=== PATIENT | male | born 1975 | race American Indian/Alaskan Native ===

== ENCOUNTER 2018-04-19 13:11 | Observation (INO) | payer MEDICAID ==
[2018-04-19 14:27] VITALS: BMI 30.4
--- NOTE | 2018-04-19 14:39 | CT ---
Date of service: 04/19/2018 PROCEDURE: CT HEAD WITHOUT CONTRAST. HISTORY: Code Stroke COMPARISON: None available. TECHNIQUE: Axial computed tomography images were obtained through the head/brain without intravenous contrast. Radiation dose: Total exam DLP = 971 mGy-cm. This CT exam was performed using one or more of the following dose reduction techniques: Automated exposure control, adjustment of the mA and/or kV according to patient size, and/or use of iterative reconstruction technique. FINDINGS: HEMORRHAGE: No intracranial hemorrhage. BRAIN: No mass effect or edema. No atrophy or chronic microvascular ischemic changes. VENTRICLES: Unremarkable. No hydrocephalus. CALVARIUM: Unremarkable. PARANASAL SINUSES: Unremarkable as visualized. No significant inflammatory changes. MASTOID AIR CELLS: Unremarkable as visualized. No inflammatory changes. OTHER FINDINGS: None. IMPRESSION: No acute findings
[2018-04-19 14:41] LABS: BASO # 0.03 K/mm3 (0.0-2.0); BASO % 0.4 % (0.0-3.0); EOS # 0.2 (0.0-0.7); EOS % 1.8 % (1.5-5.0); GRAN # 5.66 (1.4-6.5); GRAN % 68.8 % (50.0-68.0); HEMOGLOBIN 14.5 g/dL (14.0-18.0); LYMPH # 1.6 (1.2-3.4); LYMPH % 19.8 % (22.0-35.0); MEAN CELL VOLUME 88.6 fl (80.0-105.0); MEAN CORPUSCULAR HEMOGLOBIN 31.3 pg (25.0-35.0); MEAN CORPUSCULAR HGB CONC 35.3 g/dl (31.0-37.0); MEAN PLATELET VOLUME 9.3 fl (7.0-11.0); MONO # 0.8 (0.1-0.6); MONO % 9.2 % (1.0-6.0); RBC 4.64 10^6/uL (3.5-6.1); RED CELL DISTRIBUTION WIDTH 12.3 % (11.5-14.5); WHITE BLOOD COUNT 8.2 10^3/ul (4.5-11.0)
[2018-04-19 14:50] LABS: INR 1.19; PARTIAL THROMBOPLASTIN TIME 30.3 Seconds (25.1-36.5); PROTHROMBIN TIME 13.6 SECONDS (9.4-12.5)
--- NOTE | 2018-04-19 14:51 | RAD ---
Date of service: 04/19/2018 PROCEDURE: CHEST RADIOGRAPH, 1 VIEW HISTORY: Code Stroke COMPARISON: None available. FINDINGS: LUNGS: Clear. PLEURA: No pneumothorax or pleural fluid seen. CARDIOVASCULAR: Normal. OSSEOUS STRUCTURES: No significant abnormalities. VISUALIZED UPPER ABDOMEN: Normal. OTHER FINDINGS: None. IMPRESSION: No active disease.
[2018-04-19 14:53] LABS: ALB/GLOB RATIO 1.1 (1.1-1.8); ALBUMIN 4.1 g/dL (3.0-4.8); ALT/SGPT 46 U/L (7-56); AST/SGOT 38 U/L (17-59); BLOOD UREA NITROGEN 12 mg/dL (7-21); CALCIUM 9.4 mg/dL (8.4-10.5); GFR AFRICAN-AMERICAN > 60; GFR NON-AFRICAN AMERICAN > 60; HDL CHOLESTEROL 41 mg/dL (29-60)
[2018-04-19] MEDS: Sodium Chloride 0.9% 1,000 ML IV SCH (14:54)
[2018-04-19 15:04] LABS: LDL CHOLESTEROL 74 mg/dL (0-129)
[2018-04-19 15:07] LABS: TROPONIN I < 0.01 ng/mL
--- NOTE | 2018-04-19 16:30 | ED PDOC ---
Arrival/HPI - General Chief Complaint: Weakness/Neurological Deficit Time Seen by Provider: 04/19/18 14:18 Historian: Patient - History of Present Illness Narrative History of Present Illness (Text): 04/19/18 16:32 43-year-old male with no past medical history presents today with right sided facial weakness. Patient states that he woke up and noticed around 850 today with right sided facial tingling and around 9am noticed a right sided facial droop. pt states he has been having headaches x 3 days. no fever/chills. no neck pain. no dizziness. no chest pain or shortness of breath. no abdominal pain. no n/v/d/c. no other complaints. Past Medical History - Provider Review Nursing Documentation Reviewed: Yes - Travel History Have you recently traveled outside [place] w/in the past 3 mons?: No - Cardiac Hx Cardiac Disorders: No - Pulmonary Hx Respiratory Disorders: No - Neurological Hx Neurological Disorder: No - HEENT Hx HEENT Disorder: No - Endocrine/Metabolic Hx Endocrine Disorders: No - Psychiatric Hx Substance Use: No - Surgical History Other/Comment: Benign tumor of the liver - Anesthesia Hx Anesthesia: Yes Family/Social History - Physician Review Nursing Documentation Reviewed: Yes Family/Social History: Unknown Family HX Smoking Status: Light Smoker < 10 Cigarettes Daily Hx Alcohol Use: No Hx Substance Use: No Allergies/Home Meds Allergies/Adverse Reactions: Allergies Unobtainable Allergy (Verified 04/19/18 14:25) Home Medications: Home Meds Medication Instructions Recorded Confirmed No Known Home Med 04/19/18 04/19/18 Review of Systems - Review of Systems Constitutional: absent: Fatigue, Fevers Eyes: absent: Vision Changes ENT: absent: Sore Throat, Sinus Congestion Respiratory: absent: SOB, Cough Cardiovascular: absent: Chest Pain, Palpitations Gastrointestinal: absent: Abdominal Pain, Nausea, Vomiting Genitourinary Male: absent: Dysuria Musculoskeletal: absent: Arthralgias Skin: absent: Rash, Pruritis Neurological: Headache, Facial Droop. absent: Dizziness Psychiatric: absent: Anxiety, Depression, Suicidal Ideation Physical Exam Vital Signs Reviewed: Yes Vital Signs Temp Pulse Resp BP Pulse Ox 04/19/18 14:26 98.7 F 63 18 134/89 97 04/19/18 14:10 98.7 F 63 18 134/89 97 04/19/18 14:09 98.7 F 71 18 131/87 97 Temperature: Afebrile Blood Pressure: Normal Pulse: Regular Respiratory Rate: Normal Appearance: Positive for: Well-Appearing, Non-Toxic, Comfortable Pain Distress: None Mental Status: Positive for: Alert and Oriented X 3 Finger Stick Blood Glucose: 112 - Systems Exam Head: Present: Atraumatic, Other (right sided facial droop, unable to wrinkle forehead, ) Pupils: Present: PERRL Extroacular Muscles: Present: EOMI Conjunctiva: Present: Normal, Other (inability to close eye. ) Ears: Present: Normal, Other (no herpetic lesions) Mouth: Present: Moist Mucous Membranes Pharnyx: Present: Normal Nose (External): Present: Atraumatic Nose (Internal): Present: Normal Inspection Neck: Present: Normal Range of Motion. No: MIDLINE TENDERNESS, Paraspinal Tenderness Respiratory/Chest: Present: Clear to Auscultation, Good Air Exchange. No: Respiratory Distress, Accessory Muscle Use Cardiovascular: Present: Regular Rate and Rhythm, Normal S1, S2. No: Murmurs Abdomen: No: Tenderness, Rebound, Guarding Back: Present: Normal Inspection Upper Extremity: Present: Normal ROM Lower Extremity: Present: Normal ROM Neurological: Present: GCS=15, Speech Normal, Motor Func Grossly Intact, Normal Sensory Function, Gait Normal. No: CN II-XII Intact (facial nerve paralysis) Skin: Present: Warm, Dry, Normal Color Psychiatric: Present: Alert, Oriented x 3 Medical Decision Making ED Course and Treatment: 04/19/18 17:49 43yr old male with facial drop since 850am. code stroke was called by nursing staff. pt evaluated at beside noted to have right sided facial paralysis with flattening of forehead. consider bells palsy vs stroke. head CT; FINDINGS: HEMORRHAGE: No intracranial hemorrhage. BRAIN: No mass effect or edema. No atrophy or chronic microvascular ischemic changes. VENTRICLES: Unremarkable. No hydrocephalus. CALVARIUM: Unremarkable. PARANASAL SINUSES: Unremarkable as visualized. No significant inflammatory changes. MASTOID AIR CELLS: Unremarkable as visualized. No inflammatory changes. OTHER FINDINGS: None. IMPRESSION: No acute findings cbc; wnl cmp; wnl trop; wnl ekg; nsr at 61b/m; no st elevations, normal axis, normal intervals. cxr; wnl tylenol ordered for headache; pt refused rectal tylenol. pt failed swallow screen based on right sided facial weakness; asa ordered rectally; Pt refused. case was discussed with dr. PRIDE; advised prednisone and acyclovir po. as patient failed swallow screen dr. pride was notified and advised solu medrol 125mg IV and acyclovir 1000mg IV. advised observational status admission for observation. case discussed with dr. brumfield; accepts observation status admission for facial weakness, bells palsy vs stroke. impression; facial paralysis admit observational status to tele - Lab Interpretations Lab Results: 04/19/18 14:24 04/19/18 14:24 Lab Results 04/19/18 14:29: Blood Type O POSITIVE, Antibody Screen Negative, BBK History Checked No verified bt 04/19/18 14:24: Sodium 140, Potassium 3.8, Chloride 100, Carbon Dioxide 30, Anion Gap 14, BUN 12, Creatinine 1.0, Est GFR ( Amer) > 60, Est GFR (Non- Af Amer) > 60, Random Glucose 99, Calcium 9.4, Total Bilirubin 0.7, AST 38, ALT 46, Alkaline Phosphatase 99, Troponin I < 0.01, Total Protein 8.0, Albumin 4.1, Globulin 3.9, Albumin/Globulin Ratio 1.1, Triglycerides 69, Cholesterol 152, LDL Cholesterol Direct 74, HDL Cholesterol 41 04/19/18 14:24: PT 13.6 H, INR 1.19, APTT 30.3 04/19/18 14:24: WBC 8.2, RBC 4.64, Hgb 14.5, Hct 41.1 L, MCV 88.6, MCH 31.3, MCHC 35.3, RDW 12.3, Plt Count 190, MPV 9.3, Gran % 68.8 H, Lymph % (Auto) 19.8 L, [place] % (Auto) 9.2 H, Eos % (Auto) 1.8, Baso % (Auto) 0.4, Gran # 5.66, Lymph # (Auto) 1.6, [place] # (Auto) 0.8 H, Eos # (Auto) 0.2, Baso # (Auto) 0.03 04/19/18 14:18: POC Glucose (mg/dL) 112 H - RAD Interpretation Radiology Orders: 04/19/18 14:26 HEAD W/O (CODE STROKE) [CT] Stat CHEST ONE VIEW [RAD] Stat - Medication Orders Current Medication Orders: Sodium Chloride (Sodium Chloride 0.9%) 1,000 mls @ 100 mls/hr IV .Q10H GAVIN Last Admin: 04/19/18 14:54 Dose: 100 mls/hr eMAR Start Stop Document 04/19/18 14:54 LA (Rec: 04/19/18 14:55 LA [id number]) Intravenous Solution Start Date 04/19/18 Start Time 14:55 Acyclovir 500 mg/ Sodium (Chloride) 100 mls @ 100 mls/hr IV Q8 GAVIN PRN Reason: Protocol Acyclovir 1,000 mg/ Sodium (Chloride) 250 mls @ 100 mls/hr IV STAT STA PRN Reason: Protocol Stop: 04/19/18 20:05 Methylprednisolone (Solu-Medrol) 40 mg IVP Q12 GAVIN Pantoprazole Sodium (Protonix Inj) 40 mg IVP DAILY GAVIN Discontinued Medications Aspirin (Aspirin Supp) 300 mg RC STAT STA Stop: 04/19/18 17:43 Acyclovir 1,000 mg/ Sodium (Chloride) 100 mls @ 100 mls/hr IV STAT STA PRN Reason: Protocol Stop: 04/19/18 18:35 Methylprednisolone (Solu-Medrol) 125 mg IVP STAT STA Stop: 04/19/18 17:36 NIHSS Scale ([place]) Time Performed: 14:25 - How Severe is the Stoke Baseline Level of Consciousness: 0=Alert LOC to Questions: 0=Both comments correct LOC to commands: 0=Obeys both correctly Best Gaze: 0=Normal Visual: 0=No visual loss Facial: 3=Complete unilateral paralysis Motor Arm - Left: 0=No drift Motor Arm - Right: 0=No drift Motor Leg - Left: 0=No drift Motor Leg - Right: 0=No drift Limb Ataxia: 0=Absent Sensory: 0=Normal Best Language: 0=No aphasia Dysarthia: 0=Normal articulation Extinction & Inattention (Neglect): 0=Normal, no object Score: 3 Risk Level: Minor Stroke Risk rTPA Inclusion/Exclusion - Refusal of Treatment Patient Refused Treatment: No - Inclusion Criteria for Altepase Patient is 18 years or Older: Yes The Clinical Diagnosis of Ischemic Stroke That is Causing a Potentially Disabling Neurological Deficit: No Time of Onset is Well Established to be Less Than 270 Minute Before Treatment Would Begin: Yes Risk/Benefit Discussed With Patient/Family Member Present: Yes Disposition/Present on Arrival - Present on Arrival Any Indicators Present on Arrival: No History of DVT/PE: No History of Uncontrolled Diabetes: No Urinary Catheter: No History of Decub. Ulcer: No History Surgical Site Infection Following: None - Disposition Have Diagnosis and Disposition been Completed?: Yes Diagnosis: Facial paralysis Disposition: HOSPITALIZED Disposition Time: 15:51 Patient Plan: Observation Patient Problems: Current Active Problems Problem Status Onset Facial paralysis Acute Condition: FAIR
--- NOTE | 2018-04-19 17:25 | CARD ---
APPROVED REPORT Date of service: 04/19/2018 EKG Measurement Heart [id number] <Conclusion> Normal sinus rhythm T wave abnormality, consider anterior ischemia Abnormal ECG
[2018-04-19] MEDS ORDERED: Aritificial Tears (15ml) OD PRN (18:15)
--- NOTE | 2018-04-19 20:04 | CP.PCM.HP ---
<Tanner Thompson - Last Filed: 04/19/18 21:06> History of Present Illness - History of Present Illness History of Present Illness: Tanner Thompson D.O PGY-1, H & P note for Dr. Taylor CC: Right-sided facial droop HPI: Patient is a 43 yo male with PMH of benign liver tumor presenting to the ED with right facial droop and flattening of the right forehead. Patient states that his facial droop started this morning at 9AM. He was brushing his teeth when suddenly felt that the right side of his face went numb and he was unable to expel water from his mouth. Patient also admits to having blurry vision in the right eye and headaches for 3 days that he describes as achy and radiates to behind the eyes and back of neck. Patient takes ibuprofen for the headaches and it helped. Patient denies chest pain, shortness of breath, abdominal pain, N /V/D, and urinary symptoms. In ED, code stroke was called. 12 point ROS negative except as indicated in HPI Past medical history: Benign liver tumor Surgical History: Lipoma removal Allergies: NKDA Social History: denies alcohol, tobacco, and drugs. Patient recently travelled to [facility] but did not go outdoors. Denies recent hiking or being outdoors. 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 Family History: Mother- Multiple Sclerosis and HTN, Father- does not know Medications: none PMD: Dr. Steve in [facility] Present on Admission - Present on Admission Any Indicators Present on Admission: No History of DVT/PE: No History of Uncontrolled Diabetes: No Urinary Catheter: No Decubitus Ulcer Present: No Past Patient History - Past Social History Smoking Status: Light Smoker < 10 Cigarettes Daily - CARDIAC Hx Cardiac Disorders: No - PULMONARY Hx Respiratory Disorders: No - NEUROLOGICAL Hx Neurological Disorder: No - HEENT Hx HEENT Problems: No - ENDOCRINE/METABOLIC Hx Endocrine Disorders: No - PSYCHIATRIC Hx Substance Use: No - SURGICAL HISTORY Other/Comment: Benign tumor of the liver - ANESTHESIA Hx Anesthesia: Yes Meds Allergies/Adverse Reactions: Allergies Allergy/AdvReac Type Severity Reaction Status Date / Time Unobtainable Allergy Verified 04/19/18 14:25 Physical Exam - Constitutional Appears: No Acute Distress - Head Exam Head Exam: ATRAUMATIC, NORMAL INSPECTION - Eye Exam Eye Exam: EOMI, PERRL Pupil Exam: NORMAL ACCOMODATION, PERRL - ENT Exam ENT Exam: Mucous Membranes Moist - Neck Exam Neck exam: Positive for: Normal Inspection - Respiratory Exam Respiratory Exam: Clear to Auscultation Bilateral. absent: Rales, Rhonchi, Wheezes - Cardiovascular Exam Cardiovascular Exam: REGULAR RHYTHM, +S1, +S2. absent: Gallop, Rubs, Systolic Murmur - GI/Abdominal Exam GI & Abdominal Exam: Normal Bowel Sounds, Soft. absent: Tenderness - Extremities Exam Extremities exam: Positive for: normal inspection. Negative for: pedal edema - Neurological Exam Neurological exam: Alert, CN II-XII Intact, Oriented x3 Additional comments: Right-sided facial droop,right ptosis, unable to wrinkle right forehead. Muscle strength 5/5 bilateral upper and lower extremities. Sensations intact on the face and all extremities. - Psychiatric Exam Psychiatric exam: Normal Affect, Normal Mood - Skin Skin Exam: Dry, Intact, Warm Additional comments: No rashes present Results - Vital Signs Recent Vital Signs: Last Vital Signs Temp 98.1 F 04/19/18 19:05 Pulse 60 04/19/18 19:05 Resp 18 04/19/18 19:05 BP 133/82 04/19/18 19:05 Pulse Ox 100 04/19/18 19:05 - Labs Result Diagrams: 04/19/18 14:24 04/19/18 14:24 Labs: Laboratory Results - last 24 hr 04/19/18 16:03 Blood Type Confirm O POSITIVE Assessment & Plan - Assessment and Plan (Free Text) Assessment: Patient is a 43 yo male with PMH of benign liver tumor presenting to the ED with right facial droop and flattening of the right forehead. Code stroke was called in the ED. Plan: Mcfarland's palsy - Need to rule out CVA - Right facial droop and flattening of right forehead is consistent with [place] palsy - CXR: no acute disease - Head CT: no acute findings - EKG: NSR @ 61 - Lyme IgG/IgM, HSV, HIV tests ordered - Started Methylprednisone 40mg Q12 and Acyclovir 500mg IV Q8 - NPO diet - Carotid duplex ordered - Brain MRI without contrast ordered - Echo ordered - Speech/swallow evaluation - Neuro consulted - PT eval GI prophylaxis: Protonix Patient case reviewed with and plan approved by attending physician, Dr. Taylor. - Date & Time Date: 04/19/18 Time: 18:00 <BrandonMarjorie R - Last Filed: 04/20/18 08:45> Results - Vital Signs Recent Vital Signs: Last Vital Signs Temp 98.8 F 04/20/18 06:00 Pulse 57 L 04/20/18 06:00 Resp 16 04/20/18 06:00 BP 117/75 04/20/18 06:00 Pulse Ox 97 04/20/18 06:00 - Labs Result Diagrams: 04/20/18 06:30 04/20/18 06:30 Labs: Laboratory Results - last 24 hr 04/19/18 04/20/18 04/20/18 16:03 06:30 06:30 WBC 7.5 RBC 4.58 Hgb 14.1 Hct 40.2 L MCV 87.8 MCH 30.8 MCHC 35.1 RDW 12.3 Plt Count 195 MPV 9.5 Sodium 139 Potassium 5.0 Chloride 103 Carbon Dioxide 27 Anion Gap 14 BUN 13 Creatinine 0.9 Est GFR ( Amer) > 60 Est GFR (Non-Af Amer) > 60 Random Glucose 134 H Calcium 9.3 Phosphorus 4.4 Magnesium 1.9 Total Bilirubin 0.5 AST 45 ALT 51 Alkaline Phosphatase 95 Total Protein 7.6 Albumin 3.8 Globulin 3.8 Albumin/Globulin Ratio 1.0 L Blood Type Confirm O POSITIVE Attending/Attestation - Attestation I have personally seen and examined this patient.: Yes I have fully participated in the care of the patient.: Yes I have reviewed all pertinent clinical information: Yes Notes (Text): Patient seen and examined by me at 5:15PM with resident 04/19/18. Case including HPI, physical exam, and assessment and plan discussed with resident. Agree with above with following additions/corrections. Patient is a 43-year-old male with past medical history significant for benign liver tumor that presented to the emergency room with right-sided facial droop. Patient states that for the past 3 days he has been having a headache. He states that starts in the back of his neck and radiates to the eyes. The headache has been constant and aching in nature. Patient tried ibuprofen yesterday with very temporary relief. He states he does not normally get headaches. He states this morning when he tried to brush his teeth he noticed that there was water coming out from the right side of his mouth. He didn't noticed a facial droop so he came into the emergency room. He states while driving to the hospital he noticed that he had some difficulty with vision in his right eye. He denies any recent illnesses. He denies any history of herpes or tick bites. No dizziness or lightheadedness. No dysuria. No back pain. No fevers or chills. No chest pain or palpitations. No shortness of breath. No diarrhea or constipation. 12 point review systems reviewed by me. Please see HPI. All other systems are negative. Physical exam: General: Awake and alert sitting up in bed in no acute distress HEENT: Normocephalic atraumatic. Pupils equal reactive. No scleral icterus. Oropharynx is pink and moist, no pharyngeal erythema or exudate appreciated. Neck is supple. Hearing grossly intact. Ears and nose externally unremarkable Cardiovascular: Normal rhythm. Normal S1, S2. No murmurs, rubs, or gallops appreciated Pulmonary: Normal respiratory effort. No rhonchi, rales or wheezing appreciated. Gastrointestinal: Soft, nontender, nondistended, positive bowel sounds all 4 quadrants, no guarding. Musculoskeletal: Normal range of motion all extremities, no calf tenderness, no edema appreciated Central nervous system: AAO x 3. Positive 7th nerve palsy right, unable to wrinkle right forehead, unable to close right eye, unable to open right side of mouth. 5/5 muscle strength all extremities. Dermatologic: Skin warm and dry Assessment and plan: Patient is a 43-year-old male with past medical history significant for benign liver tumor that presented to the emergency room with right-sided facial droop. 1. Right facial droop. 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 7th nerve palsy on right. Started on IV steroids and IV acyclovir as patient unable to swallow. Patient felt swallow screen at bedside. Speech and swallow consulted. Rule out CVA. Patient was a code stroke in the emergency room. Neurology consulted, follow-up recommendations. Head CT per radiologist showed no acute findings. Follow-up brain MRI. Follow-up carotid Dopplers and 2-D echo. Follow-up HIV, HSV , and lyme. Aspirin given rectally in the ED. Nothing by mouth for now. Monitor on telemetry. 2. Dysphagia. Secondary to #1. Nothing by mouth for now. Placed on IV fluids. Speech and swallow consulted, follow-up recommendations. 3. GI/DVT prophylaxis. Protonix and SCDs with early ambulation. Case was discussed in detail with the patient and medical billing and coding specialist regarding current diagnosis and treatment plan.
[2018-04-19] MEDS: MethylPREDNISolone 40 mg Vial IVP SCH (23:27)
[2018-04-20 02:47] VITALS: O2SAT 97
[2018-04-20] MEDS ORDERED: Acyclovir 500 MG in Sodium Chloride 0.9% 100 ML IV SCH (06:00)
[2018-04-20] MEDS ORDERED: Pantoprazole 40 mg EC Tab PO SCH (06:00)
[2018-04-20 07:11] LABS: HEMOGLOBIN 14.1 g/dL (14.0-18.0); MEAN CELL VOLUME 87.8 fl (80.0-105.0); MEAN CORPUSCULAR HEMOGLOBIN 30.8 pg (25.0-35.0); MEAN CORPUSCULAR HGB CONC 35.1 g/dl (31.0-37.0); MEAN PLATELET VOLUME 9.5 fl (7.0-11.0); RBC 4.58 10^6/uL (3.5-6.1); RED CELL DISTRIBUTION WIDTH 12.3 % (11.5-14.5); WHITE BLOOD COUNT 7.5 10^3/ul (4.5-11.0)
[2018-04-20 07:42] LABS: ALBUMIN 3.8 g/dL (3.0-4.8); ALT/SGPT 51 U/L (7-56); AST/SGOT 45 U/L (17-59); BLOOD UREA NITROGEN 13 mg/dL (7-21); CALCIUM 9.3 mg/dL (8.4-10.5); GFR AFRICAN-AMERICAN > 60; GFR NON-AFRICAN AMERICAN > 60
--- NOTE | 2018-04-20 09:38 | MRI ---
Date of service: 04/20/2018 PROCEDURE: MRI BRAIN WITHOUT CONTRAST HISTORY: r/o CVA COMPARISON: None available. TECHNIQUE: Multiplanar, multisequence MR images of the brain were obtained without intravenous contrast enhancement. FINDINGS: HEMORRHAGE: None DWI: No evidence of an acute or early subacute infarction. BRAIN PARENCHYMA: No mass effect or edema. No atrophy or chronic microvascular ischemic changes. VENTRICLES: Unremarkable. No hydrocephalus. CRANIUM: Unremarkable. ORBITS: Grossly unremarkable. PARANASAL SINUSES/MASTOIDS: Clear VASCULAR SYSTEM: Skull base flow voids intact. 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 Image 14 series 5 IMPRESSION: No acute intracranial findings
[2018-04-20] MEDS: Sodium Chloride 0.9% 1,000 ML IV SCH (10:36)
[2018-04-20] MEDS: MethylPREDNISolone 40 mg Vial IVP SCH (10:39)
--- NOTE | 2018-04-20 11:01 | US ---
PROCEDURE: Bilateral carotid artery duplex ultrasound HISTORY: Carotid stenosis CVA PHYSICIAN(S): Anuj Nunez MD. TECHNIQUE: Duplex sonography and color-flow Doppler were used to evaluate the carotid bifurcations and limited segments of the vertebral arteries bilaterally. FINDINGS: There is mild smooth hypoechoic plaque noted at the carotid bifurcations bilaterally. The peak systolic velocity in the proximal right internal carotid artery is 93 cm/sec. This corresponds to a 0-19 percent proximal right ICA stenosis. Normal systolic velocities are noted in the proximal right external carotid artery. There is antegrade flow in the right vertebral artery. The peak systolic velocity in the proximal left internal carotid artery is 79 cm/sec. This corresponds to a 0-19 percent proximal left ICA stenosis. Normal systolic velocities are noted in the proximal left external carotid artery. There is antegrade flow in the left vertebral artery. IMPRESSION: 1. Bilateral 0-19 percent proximal ICA stenoses. 2. Antegrade flow in both vertebral arteries.
[2018-04-20 11:39] VITALS: BP 149/98; PULSE 62; RESP 18; TEMP 98.3
--- NOTE | 2018-04-20 12:16 | CARD ---
APPROVED REPORT Date of service: 04/20/2018 EXAM: Two-dimensional and M-mode echocardiogram with Doppler and color Doppler. INDICATION R/O CVA 2D DIMENSIONS Left Atrium (2D)4.3 (1.6-4.0cm)IVSd1.0 (0.7-1.1cm) LVDd5.4 (3.9-5.9cm)PWd1.2 (0.7-1.1cm) LVDs3.6 (2.5-4.0cm)FS (%) 34.4 % LVEF (%)63.0 (>50%) M-Mode DIMENSIONS Aortic Root4.10 (2.2-3.7cm)Aortic Cusp Exc.2.10 (1.5-2.0cm) Aortic Valve AoV Peak Tlpqrpki947.0cm/[place] Peak GR.9mmHg Mitral Valve MV E Dtjystig92.3cm/sMV A Yimvfubn03.6cm/sE/A ratio0.7 TDI Lateral E' Peak V9.16cm/sMedial E' Peak V7.80cm/sE/Lateral E'5.8 E/Medial E'6.8 Pulmonary Valve PV Peak Dphprpfg65.0cm/sPV Peak Grad.2mmHg Tricuspid Valve TR Peak [id number]/sRAP [id number] Peak Gr.20mmHg [id number] LEFT VENTRICLE The left ventricle is normal size. There is normal left ventricular wall thickness. The left ventricular function is normal.EF-60-65% There is normal LV segmental wall motion. The left ventricular diastolic function is normal. No left ventricle thrombus noted on this study. There is no ventricular septal defect visualized. There is no left ventricular aneurysm. There is no mass noted in the left ventricle. RIGHT VENTRICLE The right ventricle is normal size. There is normal right ventricular wall thickness. The right ventricular systolic function is normal. ATRIA The left atrium is mildly dilated. The right atrium size is normal. The interatrial septum is intact with no evidence for an atrial septal defect. AORTIC VALVE The aortic valve is thickened but opens well. No aortic regurgitation is present. There is no aortic valvular stenosis. There is no aortic valvular vegetation. MITRAL VALVE The mitral valve is thickened but opens well. Mitral regurgitation is trace. There is no mitral valve stenosis. There is no evidence of mitral valve prolapse. TRICUSPID VALVE The tricuspid valve leaflets are thickened , but open well. There is trace tricuspid regurgitation.RVSP_9 mmof Hg. There is no tricuspid valve stenosis. There is no tricuspid valve prolapse or vegetation. PULMONIC VALVE The pulmonary valve is normal in structure. There is trace pulmonic valvular regurgitation. There is no pulmonic valvular stenosis. GREAT VESSELS The aortic root is normal in size. The ascending aorta is normal in size. The pulmonary artery is normal. The IVC is normal in size and collapses >50% with inspiration. PERICARDIAL EFFUSION There is no pleural effusion. There is no pericardial effusion. <Conclusion> The left ventricle is normal size. There is normal left ventricular wall thickness. The left ventricular function is normal.EF-60-65% Mitral regurgitation is trace. There is trace tricuspid regurgitation.RVSP_9 mmof Hg. The IVC is normal in size and collapses >50% with inspiration. There is no pericardial effusion. No Vegetation or thrombus noted.
[2018-04-20 12:39] LABS: URINE BILIRUBIN NEGATIVE (NEGATIVE); URINE BLOOD SMALL (NEGATIVE); URINE GLUCOSE (UA) NEGATIVE (NEGATIVE); URINE LEUKOCYTE ESTERASE NEGATIVE Leu/uL (NEGATIVE); URINE PROTEIN NEGATIVE mg/dL (<30 mg/dL)
[2018-04-20 12:40] LABS: URINE APPEARANCE CLEAR (CLEAR); URINE COLOR YELLOW (YELLOW)
[2018-04-20 12:48] LABS: URINE AMORPHOUS SEDIMENT FEW; URINE BACTERIA MOD (NEG); URINE WBC 0 - 2 /hpf (0-6)
--- NOTE | 2018-04-20 16:01 | CP.PCM.DIS ---
<Chino Ding - Last Filed: 04/20/18 15:40> Provider - Provider Date of Admission: 04/19/18 15:51 Attending physician: Marjorie Taylor DO Consults: Neurology - Dr Hoover Time Spent in preparation of Discharge (in minutes): 100 Hospital Course - Lab Results Lab Results: Most Recent Lab Values WBC 7.5 10^3/ul (4.5-11.0) 04/20/18 06:30 RBC 4.58 10^6/uL (3.5-6.1) 04/20/18 06:30 Hgb 14.1 g/dL (14.0-18.0) 04/20/18 06:30 Hct 40.2 % (42.0-52.0) L 04/20/18 06:30 MCV 87.8 fl (80.0-105.0) 04/20/18 06:30 MCH 30.8 pg (25.0-35.0) 04/20/18 06:30 MCHC 35.1 g/dl (31.0-37.0) 04/20/18 06:30 RDW 12.3 % (11.5-14.5) 04/20/18 06:30 Plt Count 195 10^3/uL (120.0-450.0) 04/20/18 06:30 MPV 9.5 fl (7.0-11.0) 04/20/18 06:30 Gran % 68.8 % (50.0-68.0) H 04/19/18 14:24 Lymph % (Auto) 19.8 % (22.0-35.0) L 04/19/18 14:24 [place] % (Auto) 9.2 % (1.0-6.0) H 04/19/18 14:24 Eos % (Auto) 1.8 % (1.5-5.0) 04/19/18 14:24 Baso % (Auto) 0.4 % (0.0-3.0) 04/19/18 14:24 Gran # 5.66 (1.4-6.5) 04/19/18 14:24 Lymph # (Auto) 1.6 (1.2-3.4) 04/19/18 14:24 [place] # (Auto) 0.8 (0.1-0.6) H 04/19/18 14:24 Eos # (Auto) 0.2 (0.0-0.7) 04/19/18 14:24 Baso # (Auto) 0.03 K/mm3 (0.0-2.0) 04/19/18 14:24 PT 13.6 SECONDS (9.4-12.5) H 04/19/18 14:24 INR 1.19 04/19/18 14:24 APTT 30.3 Seconds (25.1-36.5) 04/19/18 14:24 Sodium 139 mmol/L (132-148) 04/20/18 06:30 Potassium 5.0 mmol/L (3.6-5.0) 04/20/18 06:30 Chloride 103 mmol/L (98-107) 04/20/18 06:30 Carbon Dioxide 27 mmol/L (21-33) 04/20/18 06:30 Anion Gap 14 (10-20) 04/20/18 06:30 BUN 13 mg/dL (7-21) 04/20/18 06:30 Creatinine 0.9 mg/dl (0.8-1.5) 04/20/18 06:30 Est GFR ( Amer) > 60 04/20/18 06:30 Est GFR (Non-Af Amer) > 60 04/20/18 06:30 POC Glucose (mg/dL) 105 mg/dL (65-110) 04/20/18 11:28 Random Glucose 134 mg/dL (70-110) H 04/20/18 06:30 Hemoglobin A1c 5.5 % (4.2-6.5) 04/19/18 14:24 Calcium 9.3 mg/dL (8.4-10.5) 04/20/18 06:30 Phosphorus 4.4 mg/dL (2.5-4.5) 04/20/18 06:30 Magnesium 1.9 mg/dL (1.7-2.2) 04/20/18 06:30 Total Bilirubin 0.5 mg/dL (0.2-1.3) 04/20/18 06:30 AST 45 U/L (17-59) 04/20/18 06:30 ALT 51 U/L (7-56) 04/20/18 06:30 Alkaline Phosphatase 95 U/L (38-126) 04/20/18 06:30 Troponin I < 0.01 ng/mL 04/19/18 14:24 Total Protein 7.6 g/dL (5.8-8.3) 04/20/18 06:30 Albumin 3.8 g/dL (3.0-4.8) 04/20/18 06:30 Globulin 3.8 gm/dL 04/20/18 06:30 Albumin/Globulin Ratio 1.0 (1.1-1.8) L 04/20/18 06:30 Triglycerides 69 mg/dL (35-160) 04/19/18 14:24 Cholesterol 152 mg/dL (130-200) 04/19/18 14:24 LDL Cholesterol Direct 74 mg/dL (0-129) 04/19/18 14:24 HDL Cholesterol 41 mg/dL (29-60) 04/19/18 14:24 Urine Color Yellow (YELLOW) 04/20/18 12:28 Urine Appearance Clear (CLEAR) 04/20/18 12:28 Urine pH 6.0 (4.7-8.0) 04/20/18 12:28 Ur Specific [place] 1.020 (1.005-1.035) 04/20/18 12:28 Urine Protein Negative mg/dL (<30 mg/dL) 04/20/18 12:28 Urine Glucose (UA) Negative mg/dL (NEGATIVE) 04/20/18 12:28 Urine Ketones Trace mg/dL (NEGATIVE) H 04/20/18 12:28 Urine Blood Small (NEGATIVE) H 04/20/18 12:28 Urine Nitrate Negative (NEGATIVE) 04/20/18 12:28 Urine Bilirubin Negative (NEGATIVE) 04/20/18 12:28 Urine Urobilinogen 1.0 E.U./dL (<1 E.U./dL) H 04/20/18 12:28 Ur Leukocyte Esterase Negative Lilia/uL (NEGATIVE) 04/20/18 12:28 Urine RBC 5 - 10 /hpf (0-2) 04/20/18 12:28 Urine WBC 0 - 2 /hpf (0-6) 04/20/18 12:28 Ur Epithelial Cells None /hpf (0-5) 04/20/18 12:28 Amorphous Sediment Few 08/14/18 12:28 Urine Bacteria Mod (NEG) 04/20/18 12:28 HIV 1&2 Ag/Ab, 4th Gen Nonreactive (Nonreactive) 04/19/18 18:13 Blood Type O POSITIVE 04/19/18 14:29 Blood Type Confirm O POSITIVE 04/19/18 16:03 Antibody Screen Negative 04/19/18 14:29 BBK History Checked No verified bt 04/19/18 14:29 - Hospital Course Hospital Course: 43 year old male, with a past medical history of benign liver tumor, presented to [facility] Emergency Department on 04/19/18 with right sided facial drooping, change in vision, and headache admitted to telemetry to rule out a cerebrovascular accident. In the emergency department, code stroke was called and Stroke Protocol was initiated. Aspirin administered. CT of the head and MRI of the brain were negative for acute findings. Carotid US performed showed 0-19% stenosis of the ICA bilaterally with adequate flow through vertebral arteries. ECHO was grossly normal with an EF of 63%. EKG was normal sinus rhythm. Troponins were negative. Lipid panel was within normal limits. Neurology was consulted. Patient initially could not swallow and speech and swallow evaluations were ordered. Physical therapy evaluated patient's gait and balance. Patient was started on IV fluids. Patient given Acyclovir and Solumedrol as well as tear drops for the right eye. Patient passed the speech and swallow evaluation and was able to tolerate a regular diet. GI and DVT prophylaxis administered. Patient is to be discharged 04/20 with Prednisone and Acyclovir. He is to follow up with his PMD in 3-5 days and with neurology within 1 month. Above is a brief summary of patient's hospital course. For a detailed course please refer to medical records. - Date & Time of H&P Date of H&P: 04/19/18 Time of H&P: 20:00 Discharge Exam - Head Exam Head Exam: ATRAUMATIC, NORMAL INSPECTION - Eye Exam Eye Exam: EOMI Additional comments: Right eye difficult to close and open Unable to smile or frown on the right side - ENT Exam ENT Exam: Mucous Membranes Dry - Respiratory Exam Respiratory Exam: Clear to PA & Lateral, NORMAL BREATHING PATTERN, UNREMARKABLE. absent: Wheezes - Cardiovascular Exam Cardiovascular Exam: REGULAR RHYTHM, +S1, +S2. absent: Systolic Murmur - GI/Abdominal Exam GI & Abdominal Exam: Normal Bowel Sounds, Soft. absent: Tenderness - Neurological Exam Neurological exam: Alert, Oriented x3 - Psychiatric Exam Psychiatric exam: Normal Affect, Normal Mood Discharge Plan - Discharge Medications Prescriptions: Acyclovir [Zovirax] 800 mg PO TID 10 Days #30 tab Polyethylene Glycol/Polyvinyl [Artificial Tears] 1 drop RIGHTEYE TID #1 bottle predniSONE [Prednisone] See Taper PO DAILY #5 tab - Follow Up Plan Condition: STABLE Disposition: HOME/ ROUTINE Instructions: Mcfarland's Palsy (DC) Additional Instructions: Please follow up with your primary medical doctor in 3-5 days. Please follow up with Dr. Hoover, neurology within one month. Upon discharge, please take the medications prescribed to you as instructed. If symptoms worsen, please return to the ED. Referrals: Brady Hoover MD [Staff Provider] - <Marjorie Taylor - Last Filed: 04/21/18 09:45> Provider - Provider Date of Admission: 04/19/18 15:51 Attending physician: Marjorie Taylor, Hospital Course - Lab Results Lab Results: Most Recent Lab Values WBC 7.5 10^3/ul (4.5-11.0) 04/20/18 06:30 RBC 4.58 10^6/uL (3.5-6.1) 04/20/18 06:30 Hgb 14.1 g/dL (14.0-18.0) 04/20/18 06:30 Hct 40.2 % (42.0-52.0) L 04/20/18 06:30 MCV 87.8 fl (80.0-105.0) 04/20/18 06:30 MCH 30.8 pg (25.0-35.0) 04/20/18 06:30 MCHC 35.1 g/dl (31.0-37.0) 04/20/18 06:30 RDW 12.3 % (11.5-14.5) 04/20/18 06:30 Plt Count 195 10^3/uL (120.0-450.0) 04/20/18 06:30 MPV 9.5 fl (7.0-11.0) 04/20/18 06:30 Gran % 68.8 % (50.0-68.0) H 04/19/18 14:24 Lymph % (Auto) 19.8 % (22.0-35.0) L 04/19/18 14:24 [place] % (Auto) 9.2 % (1.0-6.0) H 04/19/18 14:24 Eos % (Auto) 1.8 % (1.5-5.0) 04/19/18 14:24 Baso % (Auto) 0.4 % (0.0-3.0) 04/19/18 14:24 Gran # 5.66 (1.4-6.5) 04/19/18 14:24 Lymph # (Auto) 1.6 (1.2-3.4) 04/19/18 14:24 [place] # (Auto) 0.8 (0.1-0.6) H 04/19/18 14:24 Eos # (Auto) 0.2 (0.0-0.7) 04/19/18 14:24 Baso # (Auto) 0.03 K/mm3 (0.0-2.0) 04/19/18 14:24 PT 13.6 SECONDS (9.4-12.5) H 04/19/18 14:24 INR 1.19 04/19/18 14:24 APTT 30.3 Seconds (25.1-36.5) 04/19/18 14:24 Sodium 139 mmol/L (132-148) 04/20/18 06:30 Potassium 5.0 mmol/L (3.6-5.0) 04/20/18 06:30 Chloride 103 mmol/L (98-107) 04/20/18 06:30 Carbon Dioxide 27 mmol/L (21-33) 04/20/18 06:30 Anion Gap 14 (10-20) 04/20/18 06:30 BUN 13 mg/dL (7-21) 04/20/18 06:30 Creatinine 0.9 mg/dl (0.8-1.5) 04/20/18 06:30 Est GFR ( Amer) > 60 04/20/18 06:30 Est GFR (Non-Af Amer) > 60 04/20/18 06:30 POC Glucose (mg/dL) 105 mg/dL (65-110) 04/20/18 11:28 Random Glucose 134 mg/dL (70-110) H 04/20/18 06:30 Hemoglobin A1c 5.5 % (4.2-6.5) 04/19/18 14:24 Calcium 9.3 mg/dL (8.4-10.5) 04/20/18 06:30 Phosphorus 4.4 mg/dL (2.5-4.5) 04/20/18 06:30 Magnesium 1.9 mg/dL (1.7-2.2) 04/20/18 06:30 Total Bilirubin 0.5 mg/dL (0.2-1.3) 04/20/18 06:30 AST 45 U/L (17-59) 04/20/18 06:30 ALT 51 U/L (7-56) 04/20/18 06:30 Alkaline Phosphatase 95 U/L (38-126) 04/20/18 06:30 Troponin I < 0.01 ng/mL 04/19/18 14:24 Total Protein 7.6 g/dL (5.8-8.3) 04/20/18 06:30 Albumin 3.8 g/dL (3.0-4.8) 04/20/18 06:30 Globulin 3.8 gm/dL 04/20/18 06:30 Albumin/Globulin Ratio 1.0 (1.1-1.8) L 04/20/18 06:30 Triglycerides 69 mg/dL (35-160) 04/19/18 14:24 Cholesterol 152 mg/dL (130-200) 04/19/18 14:24 LDL Cholesterol Direct 74 mg/dL (0-129) 04/19/18 14:24 HDL Cholesterol 41 mg/dL (29-60) 04/19/18 14:24 Urine Color Yellow (YELLOW) 04/20/18 12:28 Urine Appearance Clear (CLEAR) 04/20/18 12:28 Urine pH 6.0 (4.7-8.0) 04/20/18 12:28 Ur Specific [place] 1.020 (1.005-1.035) 04/20/18 12:28 Urine Protein Negative mg/dL (<30 mg/dL) 04/20/18 12:28 Urine Glucose (UA) Negative mg/dL (NEGATIVE) 04/20/18 12:28 Urine Ketones Trace mg/dL (NEGATIVE) H 04/20/18 12:28 Urine Blood Small (NEGATIVE) H 04/20/18 12:28 Urine Nitrate Negative (NEGATIVE) 04/20/18 12:28 Urine Bilirubin Negative (NEGATIVE) 04/20/18 12:28 Urine Urobilinogen 1.0 E.U./dL (<1 E.U./dL) H 04/20/18 12:28 Ur Leukocyte Esterase Negative Lilia/uL (NEGATIVE) 04/20/18 12:28 Urine RBC 5 - 10 /hpf (0-2) 04/20/18 12:28 Urine WBC 0 - 2 /hpf (0-6) 04/20/18 12:28 Ur Epithelial Cells None /hpf (0-5) 04/20/18 12:28 Amorphous Sediment Few 04/20/18 12:28 Urine Bacteria Mod (NEG) 04/20/18 12:28 HIV 1&2 Ag/Ab, 4th Gen Nonreactive (Nonreactive) 04/19/18 18:13 Blood Type O POSITIVE 04/19/18 14:29 Blood Type Confirm O POSITIVE 04/19/18 16:03 Antibody Screen Negative 04/19/18 14:29 BBK History Checked No verified bt 04/19/18 14:29 Attending/Attestation - Attestation I have personally seen and examined this patient.: Yes I have fully participated in the care of the patient.: Yes I have reviewed all pertinent clinical information, including history, physical exam and plan: Yes Notes (Text): Patient seen and examined by me with resident at 10:25AM 04/20/18. Case including discharge plan discussed with resident. Agree with above with following additions/corrections. Patient is a 43-year-old male with past medical history significant for benign liver tumor that presented to the emergency room with right-sided facial droop. Please see H&P for full details. Patient was admitted with right sided facial droop. 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 Patient was noted to have 7th nerve palsy on the right. Patient was unable to wrinkle his forehead on the right, close his right eye, or open the right side of his mouth. Code stroke was called in the emergency room. Neurology was consulted. CVA was ruled out. CT head per radiologist showed no acute findings. MRI brain per radiologist showed no acute intracranial findings. Carotid ultrasound per radiologist showed bilateral 0-19% proximal ICA stenosis, antegrade flow in both vertebral arteries. 2-D echo per staffing executive showed left ventricle is normal size, normal left ventricular wall thickness, left ventricular function is normal, EF 60-65%, mitral regurgitation is trace, trace tricuspid regurgitation, no pericardial effusion, no vegetation or thrombus noted (please see report for full details). Patient did not pass bedside swallow screen. Patient was made nothing by mouth. Patient was started on IV acyclovir and Solu-Medrol. Patient was seen by speech and swallow. Patient 's diet was advanced to regular diet. Patient was seen by neurology Dr. Hoover. Case discussed with Dr. Hoover. Patient was cleared for discharge by Dr. Hoover. Per Dr. Hoover, patient to be discharged on prednisone taper for 20 days total and acyclovir 800mg 3 times a day for 10 days. Patient's symptoms were slightly improved upon discharge. Patient understands that it can take time for this to improve. Patient was otherwise doing well. Lyme and HSV was pending. Patient advised to follow up outpatient for results. HIV was negative. Patient wanted to go home. Patient was discharged home. On day of discharge, patient stated he was feeling well. Patient eating and ambulating well. Denies any chest pain or shortness of breath. No fevers or chills. No nausea, vomiting, or abdominal pain. No headaches or dizziness. No dysuria. No lightheadedness. No change in vision. No diarrhea or constipation. Physical exam: General: Awake and alert sitting up in bed in no acute distress HEENT: Normocephalic atraumatic. Pupils equal reactive. No scleral icterus. Oropharynx is pink and moist, no pharyngeal erythema or exudate appreciated. Neck is supple. Hearing grossly intact. Ears and nose externally unremarkable Cardiovascular: Normal rhythm. Normal S1, S2. No murmurs, rubs, or gallops appreciated Pulmonary: Normal respiratory effort. No rhonchi, rales or wheezing appreciated. Gastrointestinal: Soft, nontender, nondistended, positive bowel sounds all 4 quadrants, no guarding. Musculoskeletal: Normal range of motion all extremities, no calf tenderness, no edema appreciated Central nervous system: AAO x 3. Positive 7th nerve palsy right, unable to wrinkle right forehead, unable to close right eye, unable to open right side of mouth. 5/5 muscle strength all extremities. Dermatologic: Skin warm and dry Please see chart for full details. Follow up instructions. Patient to follow up with primary care doctor within 3- 5 days. Patient to follow up with neurology Dr. Hoover within one month. All instructions explained to patient in detail. Patient both understands and agrees to all instructions. Time spent in discharging the patient including chart review, medication reconciliation, discussion with the patient, medical delivery technician, consultants, and nursing staff was approximately 35 minutes.
--- NOTE | 2018-04-21 13:42 | CP.PCM.CON ---
History of Present Illness - History of Present Illness History of Present Illness: 43 yr old male with acute onset of right sided weakness Past Patient History - Past Social History Smoking Status: Light Smoker < 10 Cigarettes Daily - CARDIAC Hx Cardiac Disorders: No - PULMONARY Hx Respiratory Disorders: No - NEUROLOGICAL Hx Neurological Disorder: No - HEENT Hx HEENT Problems: No - RENAL Hx Chronic Kidney Disease: No - ENDOCRINE/METABOLIC Hx Endocrine Disorders: No - HEMATOLOGICAL/ONCOLOGICAL Hx Blood Disorders: No - INTEGUMENTARY Hx Dermatological Problems: No - MUSCULOSKELETAL/RHEUMATOLOGICAL Hx Falls: No - GASTROINTESTINAL Hx Gastrointestinal Disorders: No - GENITOURINARY/GYNECOLOGICAL Hx Genitourinary Disorders: No - PSYCHIATRIC Hx Substance Use: No - SURGICAL HISTORY Other/Comment: Benign tumor of the liver - ANESTHESIA Hx Anesthesia: Yes Meds Home Medications: Home Medication List Medication Instructions Recorded Confirmed Type Acyclovir [Zovirax] 800 mg PO TID 10 Days #30 tab 04/20/18 Rx Polyethylene Glycol/Polyvinyl 1 drop RIGHTEYE TID #1 bottle 04/20/18 Rx [Artificial Tears] predniSONE [Prednisone] See Taper PO DAILY #5 tab 04/20/18 Rx Allergies/Adverse Reactions: Allergies Allergy/AdvReac Type Severity Reaction Status Date / Time Unobtainable Allergy Verified 04/19/18 14:25 Results - Vital Signs Recent Vital Signs: Last Vital Signs Temp 98.3 F 04/20/18 11:39 Pulse 62 04/20/18 11:39 Resp 18 04/20/18 11:39 BP 149/98 H 04/20/18 11:39 Pulse Ox 97 04/20/18 06:00 - Labs Result Diagrams: 04/20/18 06:30 04/20/18 06:30 Labs: Laboratory Results - last 24 hr 04/19/18 18:13 HIV 1&2 Ag/Ab, 4th Gen Nonreactive
== END 2018-04-20 16:48 | disposition home or self-care (01) ==
LOC: ED 13:11 → ERH 15:51 → 2RSO 19:36
PROVIDERS: ADMIT Internal Medicine; ATTEND Hospitalist
DX: G51.0 Bell's palsy (principal); R13.10 Dysphagia, unspecified; H53.8 Other visual disturbances; I65.23 Occlusion and stenosis of bilateral carotid arteries; F17.210 Nicotine dependence, cigarettes, uncomplicated; Z86.018 Personal history of other benign neoplasm
CPT/HCPCS: 36415; 70450; 70551; 71045; 80053; 80061; 81001; 82948; 83036; 83735; 84100; 84484; 85025; 85027; 85610; 85730; 86617; 86618; 86695; 86696; 86850; 86900; 87086; 87389; 92610; 93005; 93306; 93880; 96374; 97162; 97530; 99285; C9113; G0378; G8978; G8980; G8996; G8997; G8998; J0133; J2920; J2930; J7030